=== PATIENT | female | born 1965 | race Asian ===

== ENCOUNTER 2018-07-08 22:39 | Emergency (ER) | payer OTHER ==
[~2018-07-08] VITALS: Ht 152.4 cm; Wt 54.5 kg
[2018-07-08] MEDS ORDERED: LOSA-30 PO (22:50)
[2018-07-08] MEDS ORDERED: ASPI-1182 PO (22:50)
[2018-07-09 00:30] LABS: BASOPHILS % (AUTO) 0.4 % (0.0-2.0); EOSINOPHILS % (AUTO) 0.5 % (1.0-6.0); HEMATOCRIT 39.5 % (36-46); HEMOGLOBIN 13.3 g/dL (12.0-16.0); LYMPHOCYTES # (AUTO) 1.4 K/uL (1.0-4.8); LYMPHOCYTES % (AUTO) 14.9 % (22.0-44.0); MEAN CORPUSCULAR HEMOGLOBIN 30.4 pg (26.0-34.0); MEAN CORPUSCULAR HGB CONC 33.6 G/dL (31.0-37.0); MEAN CORPUSCULAR VOLUME 91 fL (80-100); MONOCYTES # (AUTO) 0.3 K/uL (0.1-1.0); MONOCYTES % (AUTO) 3.1 % (2.0-9.0); NEUTROPHILS # (AUTO) 7.6 K/uL (1.8-7.7); NEUTROPHILS % (AUTO) 81.1 % (40.0-70.0); PLATELET COUNT (AUTO) 280 K/uL (150-450); RED BLOOD CELL COUNT(AUTO) 4.36 MIL/uL (4.00-5.20); RED CELL DISTRIBUTION WIDTH 12.4 % (11.5-14.5)
[2018-07-09 00:45] LABS: ANION GAP 9 mmol/L (8-16); CALCIUM, TOTAL 9.8 mg/dL (8.8-10.5); CARBON DIOXIDE 28 mmol/L (22-29); CHLORIDE 102 mmol/L (98-107); CREATININE 0.87 mg/dL (0.60-1.30); GLOMERULAR FILTR. RATE CALC > 60 mL/min (>60); GLUCOSE,RANDOM 111 mg/dL (70-110); SODIUM SERUM 139 mmol/L (136-145); UREA NITROGEN, BLOOD 19 mg/dL (7-18)
[2018-07-09 00:51] LABS: B-TYPE NATRIURETIC PEPTIDE 53 pg/mL (0-100)
[2018-07-09 00:53] LABS: ALANINE AMINOTRANSFERASE 41 U/L (12-78); ALBUMIN 3.9 g/dL (3.4-5.0); ALKALINE PHOSPHATASE 67 U/L (46-116); ASPARTATE AMINOTRANSFERASE 20 U/L (15-37); BILIRUBIN,TOTAL 0.5 mg/dL (0.1-1.0); LIPASE 167 U/L (73-393); TOTAL PROTEIN, SERUM 7.7 g/dL (6.4-8.2)
[2018-07-09] MEDS ORDERED: ACETAMINOPHEN 500 MG TABLET PO ONE (01:15)
[2018-07-09] MEDS ORDERED: ONDANSETRON HCL 4 MG/2 ML VIAL IVP ONE (01:15)
[2018-07-09 02:35] VITALS: BP 132/80
== END 2018-07-09 03:08 | disposition home or self-care (01) ==
LOC: EMS 22:40
DX: R42 Dizziness and giddiness (principal); R11.2 Nausea with vomiting, unspecified; I10 Essential (primary) hypertension
CPT/HCPCS: 36415; 70450; 80053; 81002; 83690; 83880; 84484; 85025; 93005; 96374; 99284; J2405

== ENCOUNTER 2024-10-06 13:04 | Emergency (ER) | payer OTHER ==
[~2024-10-06] VITALS: Ht 149.9 cm; Wt 61.4 kg
[~2024-10-06 13:04] MED LIST: ASPI-1444 PO; LOSA-30 PO
[2024-10-06] MEDS ORDERED: TELM40 PO (13:08)
[2024-10-06 17:00] VITALS: BP 148/79; PULSE 74; RESP 18; TEMP 98.405312; O2SAT 99
== END 2024-10-06 17:17 | disposition home or self-care (01) ==
LOC: EMS 13:04
DX: S00.83XA Contusion of other part of head, initial encounter (principal); I10 Essential (primary) hypertension; Z79.899 Other long term (current) drug therapy; W18.39XA Other fall on same level, initial encounter; Y93.89 Activity, other specified; Y92.89 Other specified places as the place of occurrence of the external cause; Y99.0 Civilian activity done for income or pay
CPT/HCPCS: 70450; 93005; 99284